=== PATIENT | male | born 1940 | race Caucasian/White ===

== ENCOUNTER → 2016-12-07 | Outpatient (CLI) | payer OTHER | LOC: BHLMT 09:15 | PROVIDERS: ATTEND Internal Medicine Cardiovascular Disease | DX: I42.9 Cardiomyopathy, unspecified (principal); I48.91 Unspecified atrial fibrillation | CPT/HCPCS: 93306-PO ==

== ENCOUNTER → 2018-01-25 | Outpatient (CLI) | payer OTHER | LOC: BHLMT 10:45 | PROVIDERS: ATTEND Internal Medicine Interventional Cardiology | DX: I25.10 Atherosclerotic heart disease of native coronary artery without angina pectoris (principal) | CPT/HCPCS: 93306-PO ==

== ENCOUNTER → 2018-08-08 | Outpatient (CLI) | payer OTHER | LOC: BHLMT 09:15 | PROVIDERS: ATTEND Internal Medicine Cardiovascular Disease | DX: I48.91 Unspecified atrial fibrillation (principal); I25.10 Atherosclerotic heart disease of native coronary artery without angina pectoris; I42.9 Cardiomyopathy, unspecified | CPT/HCPCS: 93306-PO ==